=== PATIENT | female | born 2000 | race American Indian/Alaskan Native ===

== ENCOUNTER 2020-01-14 04:45 | Emergency (ER) | payer SELFPAY ==
[2020-01-14 05:01] VITALS: BP 122/92
[2020-01-14 05:32] LABS: Bacteria,Urine 1+ /HPF (Negative); Bilirubin,Urine NEG (Negative); Blood,Urine NEG (Negative); Color,Urine Yellow (Yellow); Mucus,Urine FEW /HPF; Protein,Urine <15 mg/dL mg/dL (Negative)
[2020-01-14 05:40] LABS: Basophils % (Auto) 0.1 % (0.0-1.8); Eosinophils % (Auto) 0.3 % (0.0-4.3); Hematocrit 36.5 % (30.3-42.9); Hemoglobin 12.3 gm/dl (10.1-14.3); Lymphocytes # (Auto) 1.3 K/mm3 (1.2-5.4); Lymphocytes % (Auto) 17.5 % (13.4-35.0); Mean Corpuscular HGB Conc 34 % (30-34); Mean Corpuscular Volume 95 fl (79-97); Monocytes # (Auto) 0.6 K/mm3 (0.0-0.8); Monocytes % (Auto) 8.5 % (0.0-7.3); Platelet Count 306 K/mm3 (140-440); Red Blood Count 3.85 M/mm3 (3.65-5.03)
[2020-01-14 05:59] LABS: Alanine Aminotransferase 8 units/L (7-56); Albumin 4.2 g/dL (3.9-5); BUN/Creatinine Ratio 12; Blood Urea Nitrogen 12 mg/dL (7-17); Calcium 9.1 mg/dL (8.4-10.2); Hemolysis Index 2
[2020-01-14] MEDS ORDERED: SUCRALFATE 1 GM/10 ML ORAL LIQD PO ONE (07:20)
[2020-01-14] MEDS ORDERED: FAMOTIDINE 20 MG TAB PO ONE (07:21)
[2020-01-14] MEDS ORDERED: ONDANSETRON 4 MG ODT TAB PO ONE (07:24)
--- NOTE | 2020-01-14 07:24 | Emergency Department Report ---
ED Abdominal Pain HPI - General Chief Complaint: Abdominal Pain Stated Complaint: ABD PAIN Time Seen by Provider: 01/14/20 07:11 Source: patient Mode of arrival: Ambulatory Limitations: No Limitations - History of Present Illness Initial Comments: 19-year-old morbid obese female presents to the emergency room complaining of epigastric abdominal pain x2 days. Patient states that she had vomited this morning. Patient reports that her discomfort is worse when she lies down and better when she sits up. Patient reports that the pain is sharp and is co nstant. Patient denies any unusual foods no shortness of breath no chest pain no fever chills no diarrhea or constipation. Patient reports her last menstrual period was 12/15/2019. She is 1. Denies any past medical history takes no medications on a daily basis and has no known drug allergies. MD Complaint: abdominal pain Onset/Timin -: days(s) Location: epigastric Migration to: no migration Severity scale (0 -10): 5 Quality: sharp Consistency: constant Improves With: other (Sitting up) Worsens With: other (Lying down) Associated Symptoms: vomiting (X1 this morning) - Related Data Previous Rx's Medication Instructions Recorded Last Taken Type Famotidine [Pepcid] 20 mg PO BID #30 tablet 01/14/20 Unknown Rx Allergies Allergy/AdvReac Type Severity Reaction Status Date / Time No Known Allergies Allergy Unverified 01/14/20 05:01 ED Review of Systems ROS: Stated complaint: ABD PAIN Other details as noted in HPI ED Past Medical Hx - Past Medical History Previous Medical History?: Yes Additional medical history: Obesity - Surgical History Past Surgical History?: No - Social History Smoking Status: Never Smoker Substance Use Type: None - Medications Home Medications: Home Medications Medication Instructions Recorded Confirmed Last Taken Type Famotidine [Pepcid] 20 mg PO BID #30 tablet 01/14/20 Unknown Rx ED Physical Exam - General Limitations: No Limitations General appearance: alert, in no apparent distress - Head Head exam: Present: atraumatic, normocephalic - Eye Eye exam: Present: normal appearance - ENT ENT exam: Present: mucous membranes moist - Neck Neck exam: Present: normal inspection - Respiratory Respiratory exam: Present: normal lung sounds bilaterally. Absent: respiratory distress - Cardiovascular Cardiovascular Exam: Present: regular rate, normal rhythm. Absent: systolic murmur, diastolic murmur, rubs, gallop - GI/Abdominal GI/Abdominal exam: Present: soft, normal bowel sounds. Absent: distended, tenderness - Extremities Exam Extremities exam: Present: normal inspection - Back Exam Back exam: Present: normal inspection - Neurological Exam Neurological exam: Present: alert, oriented X3 - Psychiatric Psychiatric exam: Present: normal affect, normal mood - Skin Skin exam: Present: warm, dry, intact, normal color. Absent: rash ED Course Vital Signs 01/14/20 04:56 Temperature 98 F Pulse Rate 107 H Respiratory 18 Rate Blood Pressure 122/92 O2 Sat by Pulse 100 Oximetry ED Medical Decision Making - Lab Data Result diagrams: 01/14/20 05:12 01/14/20 05:12 Laboratory Tests 01/14/20 01/14/20 01/14/20 05:12 05:12 05:12 WBC 7.3 RBC 3.85 Hgb 12.3 Hct 36.5 MCV 95 MCH 32 MCHC 34 RDW 13.0 L Plt Count 306 Lymph % (Auto) 17.5 [place] % (Auto) 8.5 H Eos % (Auto) 0.3 Baso % (Auto) 0.1 Lymph # (Auto) 1.3 [place] # (Auto) 0.6 Eos # (Auto) 0.0 Baso # (Auto) 0.0 Seg Neutrophils % 73.6 H Seg Neutrophils # 5.4 Sodium 140 Potassium 3.6 Chloride 102.1 Carbon Dioxide 24 Anion Gap 18 BUN 12 Creatinine 1.0 Estimated GFR > 60 BUN/Creatinine Ratio 12 Glucose 109 H Calcium 9.1 Total Bilirubin 0.30 AST 12 ALT 8 Alkaline Phosphatase 66 Total Protein 7.5 Albumin 4.2 Albumin/Globulin Ratio 1.3 Lipase 21 HCG, Qual Negative Urine Color Urine Turbidity Urine pH Ur Specific [place] Urine Protein Urine Glucose (UA) Urine Ketones Urine Blood Urine Nitrite Urine Bilirubin Urine Urobilinogen Ur Leukocyte Esterase Urine WBC (Auto) Urine RBC (Auto) U Epithel Cells (Auto) Urine Bacteria (Auto) Urine Mucus 01/14/20 Unknown WBC RBC Hgb Hct MCV MCH MCHC RDW Plt Count Lymph % (Auto) [place] % (Auto) Eos % (Auto) Baso % (Auto) Lymph # (Auto) [place] # (Auto) Eos # (Auto) Baso # (Auto) Seg Neutrophils % Seg Neutrophils # Sodium Potassium Chloride Carbon Dioxide Anion Gap BUN Creatinine Estimated GFR BUN/Creatinine Ratio Glucose Calcium Total Bilirubin AST ALT Alkaline Phosphatase Total Protein Albumin Albumin/Globulin Ratio Lipase HCG, Qual Urine Color Yellow Urine Turbidity Clear Urine pH 6.0 Ur Specific [place] 1.024 Urine Protein <15 mg/dl Urine Glucose (UA) Neg Urine Ketones Neg Urine Blood Neg Urine Nitrite Neg Urine Bilirubin Neg Urine Urobilinogen 2.0 Ur Leukocyte Esterase Tr Urine WBC (Auto) 2.0 Urine RBC (Auto) 1.0 U Epithel Cells (Auto) 2.0 Urine Bacteria (Auto) 1+ Urine Mucus Few - Medical Decision Making 19-year-old morbid obese female presents to the emergency room complaining of epigastric abdominal pain x2 days. Patient states that she had vomited this morning. Patient reports that her discomfort is worse when she lies down and better when she sits up. Patient reports that the pain is sharp and is constant. Patient denies any unusual foods no shortness of breath no chest pain no fever chills no diarrhea or constipation. Patient reports her last menstrual period was 12/15/2019. She is 0. Denies any past medical history takes no medications on a daily basis and has no known drug allergies. Critical care attestation.: If time is entered above; I have spent that time in minutes in the direct care of this critically ill patient, excluding procedure time. ED Disposition Clinical Impression: Gastroesophageal reflux, Severely overweight Disposition: [id number] TO HOME OR SELFCARE Is pt being admited?: No Does the pt Need Aspirin: No Condition: Stable Instructions: Weight Management (ED), Gastroesophageal Reflux Disease (ED), Obesity (ED), Abdominal Pain (ED) Additional Instructions: Please take medication as prescribed. It is very important for you not to eat and lie down as this causes the acid from the food that is been digesting your stomach to splash back up and gave you abdominal pain and chest discomfort. It is very important for you to lose weight as this increases the pressure on your diaphragm and causes acid reflux to be worse. If your symptoms persist please follow-up with a medical center representative. Prescriptions: Famotidine [Pepcid] 20 mg PO BID #30 tablet Referrals: PRIMARY CARE [Primary Care Provider] - 3-5 Days [facility] [Provider Group] - 3-5 Days [facility] [Provider Group] - 3-5 Days Forms: Work/School Release Form(ED)
== END 2020-01-14 08:10 | disposition home or self-care (01) ==
LOC: ED 04:45
DX: K21.9 Gastro-esophageal reflux disease without esophagitis (principal); E66.3 Overweight; Z79.899 Other long term (current) drug therapy
CPT/HCPCS: 36415; 80053; 81001; 83690; 84703; 85025; 99283; Q0162